=== PATIENT | male | born 1995 | race Caucasian/White ===

== ENCOUNTER 2018-03-22 09:58 | Emergency (ER) | payer OTHER ==
[~2018-03-22] VITALS: Ht 182.9 cm; Wt 99.8 kg
[2018-03-22 10:06] VITALS: BP_SYST 123
[2018-03-22 10:29] LABS: BILIRUBIN,URINE NEGATIVE (NEGATIVE); BLOOD, URINE NEGATIVE (NEGATIVE); CLARITY/URINE CLEAR (CLEAR); COLOR,URINE YELLOW (YELLOW); GLUCOSE,URINE NEGATIVE (NEGATIVE); KETONES,URINE NEGATIVE (NEGATIVE); LEUKOCYTE ESTERASE ,URINE NEGATIVE (NEGATIVE); NITRITE, URINE NEGATIVE (NEGATIVE); PROTEIN URINE NEGATIVE (NEGATIVE); UROBILINOGEN,URINE 0.2 (0.2-1.0)
[2018-03-22 10:42] VITALS: BP_SYST 123
== END 2018-03-22 10:40 | disposition home or self-care (01) ==
LOC: SED 09:58
DX: R10.30 Lower abdominal pain, unspecified (principal); R30.0 Dysuria; R03.0 Elevated blood-pressure reading, without diagnosis of hypertension
CPT/HCPCS: 81003; 99283

== ENCOUNTER 2018-03-23 08:22 | Emergency (ER) | payer OTHER ==
[~2018-03-23] VITALS: Ht 193 cm; Wt 99.8 kg
[2018-03-23 08:28] VITALS: BP_SYST 127
[2018-03-23] MEDS ORDERED: AZITHROMYCIN 250 MG TABLET PO ONE (09:00)
[2018-03-23] MEDS ORDERED: cefTRIAXone 250 MG VIAL IM ONE (09:00)
[2018-03-23] MEDS ORDERED: AZITHROMYCIN 250 MG TABLET ONE (09:10)
[2018-03-23] MEDS ORDERED: cefTRIAXone 250 MG VIAL ONE (09:10)
[2018-03-23 09:11] LABS: BILIRUBIN,URINE 1+ (NEGATIVE); BLOOD, URINE NEGATIVE (NEGATIVE); CLARITY/URINE SL HAZY (CLEAR); COLOR,URINE AMBER (YELLOW); GLUCOSE,URINE NEGATIVE (NEGATIVE); KETONES,URINE 1+ (NEGATIVE); LEUKOCYTE ESTERASE ,URINE NEGATIVE (NEGATIVE); NITRITE, URINE NEGATIVE (NEGATIVE); PH,URINE 6.5 (5.0-8.0); PROTEIN URINE 1+ (NEGATIVE)
[2018-03-23 09:43] LABS: BACTERIA,URINE FEW /HPF (None Seen); MUCUS,URINE 2+ /LPF (None Seen); RBC,URINE 0-3 /HPF (0-3); WBC,URINE 0-3 /HPF (0-3)
[2018-03-23] MEDS ORDERED: CLINDAMYCIN 900 mg/50mL D5W 50 ML IV ONE (09:45)
[2018-03-23 09:55] VITALS: BP_SYST 138
== END 2018-03-23 09:45 | disposition home or self-care (01) ==
LOC: SED 08:22
DX: Z20.2 Contact with and (suspected) exposure to infections with a predominantly sexual mode of transmission (principal); R03.0 Elevated blood-pressure reading, without diagnosis of hypertension
CPT/HCPCS: 81000; 87491; 87591; 96372; 99284; J0696; Q0144

== ENCOUNTER 2019-05-06 10:28 | Outpatient (CLI) | payer OTHER ==
[2019-05-06 11:13] LABS: BASOPHILS % (AUTO) 0.6 % (0.0-2.0); EOSINOPHILS # (AUTO) 0.2 K/uL (0.0-0.4); EOSINOPHILS % (AUTO) 3.3 % (0.0-4.0); HEMATOCRIT 44.9 % (36-54); HEMOGLOBIN 15.7 g/dL (14.0-18.0); LYMPHOCYTES % (AUTO) 34.7 % (20.5-51.5); MEAN CORPUSCULAR HEMOGLOBIN 31 pg (27-31); MEAN CORPUSCULAR HGB CONC 35 % (32-36); MEAN CORPUSCULAR VOLUME 90 fL (79.0-98.0); MONOCYTES # (AUTO) 0.5 K/uL (0.0-1.0); MONOCYTES % (AUTO) 8.2 % (1.7-9.3); NEUTROPHILS # (AUTO) 3.1 K/uL (1.8-7.7); NEUTROPHILS % (AUTO) 53.2 % (40.0-70.0); PLATELET COUNT (AUTO) 264 K/uL (130-430); RED BLOOD CELL COUNT(AUTO) 5.02 MIL/uL (4.2-6.2); RED CELL DISTRIBUTION WIDTH 13.1 % (9.0-15.0); WHITE BLOOD COUNT (AUTO) 5.8 K/uL (4.8-10.8)
[2019-05-06 12:24] LABS: CALCIUM 8.9 mg/dL (8.4-11.0); CREATININE 1.02 mg/dL (0.55-1.30); POTASSIUM 3.9 mmol/L (3.5-5.1)
[2019-05-06 12:43] LABS: ERYTHROCYTE SEDIMENTATION RATE 2 MM/HR (0-15)
[2019-05-06 12:45] LABS: TOTAL BILIRUBIN 0.7 mg/dL (0.0-1.0)
[2019-05-06 12:59] LABS: THYROID STIMULATING HORMONE 0.43 uIu/mL (0.34-4.82)
[2019-05-07 06:06] LABS: HEMOGLOBIN A1C 5.1 % (4.8-5.6)
[2019-05-07 08:18] LABS: TESTOSTERONE, SERUM TOTAL 636 ng/dL (264-916)
[2019-05-09 01:05] LABS: TESTOSTERONE, FREE (DIRECT) 11.5 pg/mL (9.3-26.5)
== END 2019-05-06 20:35 | disposition home or self-care (01) ==
LOC: SLB 10:28
PROVIDERS: ATTEND Internal Medicine
DX: Z00.00 Encounter for general adult medical examination without abnormal findings (principal)
CPT/HCPCS: 36415; 80053; 80061; 82306; 82607; 83036; 84402; 84403; 84443-TC; 85025; 85651-TC

== ENCOUNTER 2022-02-05 11:51 | Emergency (ER) | payer OTHER ==
[~2022-02-05] VITALS: Ht 190.5 cm; Wt 89.4 kg
[2022-02-05 11:51] VITALS: BP_SYST 129
[2022-02-05] MEDS ORDERED: AMOX500C2 PO ×2 (12:42)
[2022-02-05] MEDS ORDERED: IBUP-1969 PO (12:42)
[2022-02-05] MEDS ORDERED: AMOX-423 PO (12:49)
[2022-02-05] MEDS ORDERED: AMOXICILLIN/CLAVULANATE POTASSIUM 500 MG TABLET PO ONE (14:30)
[2022-02-05] MEDS ORDERED: IBUPROFEN 600 MG TABLET PO ONE (14:30)
== END 2022-02-05 14:49 | disposition home or self-care (01) ==
LOC: SED 11:51
DX: L03.012 Cellulitis of left finger (principal)
CPT/HCPCS: 99283